=== PATIENT | female | born 1985 | race Caucasian/White ===

== ENCOUNTER 2019-09-12 15:34 | Emergency (ER) | payer BC ==
[~2019-09-12] VITALS: Ht 154.9 cm; Wt 53.5 kg
[2019-09-12] MEDS ORDERED: SPIRONOLACTONE100 MG (15:51)
[2019-09-12] MEDS ORDERED: ZITHROMAX500 MG PO (19:18)
[2019-09-12] MEDS ORDERED: MEDROLPACK PO (19:18)
[2019-09-12] MEDS ORDERED: ORPHENADRINE C100 MG PO (19:18)
[2019-09-12] MEDS ORDERED: KETO10TA2 PO (19:18)
== END 2019-09-12 20:19 | disposition home or self-care (01) ==
LOC: ER 15:34
DX: T70.0XXA Otitic barotrauma, initial encounter (principal); S43.492A Other sprain of left shoulder joint, initial encounter; H66.92 Otitis media, unspecified, left ear; H92.02 Otalgia, left ear; T70.29XA Other effects of high altitude, initial encounter; W16.612A Jumping or diving into natural body of water striking water surface causing other injury, initial encounter; Y93.39 Activity, other involving climbing, rappelling and jumping off; Y92.828 Other wilderness area as the place of occurrence of the external cause; Y99.8 Other external cause status